=== PATIENT | female | born 1960 | race Two or more races ===

== ENCOUNTER 2018-10-02 09:29 | Emergency (ER) | payer OTHER ==
[2018-10-02 09:44] VITALS: TEMP 97.9; BMI 28.0
--- NOTE | 2018-10-02 10:11 | PDOC ---
History of Present Illness - General Chief Complaint: Chest Pain Stated Complaint: CHEST PAIN - History of Present Illness Initial Comments: Tanisha Muñiz is a 58yo woman with a PMH of sarcoidosis and mild asthma who presents reporting several weeks of chest tightness with SOB, now with several short/stabbing chest pains that occurred overnight. She feels that her SOB was worse today and presented for evaluation. She states that she sees Dr Crowe, and she recently saw him about 2 weeks ago for the shortness of breath. He told her everything was fine at that time, and he prescribed a course of antiobiotics and steroids. She took the entire prescribed course, but her symptoms did not really improve as much as she thought they should. She was trying to deal with the SOB, but yesterday had several episodes of short, stabbing chest pain that concerned her. She started taking a second course of steroids (prescribed 'just in case" by Dr Crowe) yesterday. Today, she felt short of breath just driving to work and decided to stop at the ED. She states that her SOB is worst when leaning forward to tie her shoes, although she has also noticed it with exertion such as climbing stairs. She has not had any cough, fever/chills, sick contacts, leg swelling, or other recent symptoms. She has otherwise been feeling well. She states that this feels similar to when she was diagnosed with pleurisy a year ago, but she expected that would have improved with the steroids. Past History - Past Medical History Allergies/Adverse Reactions: Allergies Allergy/AdvReac Type Severity Reaction Status Date / Time No Known Allergies Allergy Verified 10/02/18 09:44 Home Medications: Ambulatory Orders Albuterol Sulfate Inhaler - [Ventolin HFA Inhaler -] 1 - 2 inh PO Q4H #1 inh Albuterol 0.083% Nebulizer Mary [Ventolin 0.083%] 1 neb NEB QID PRN 10/02/18 Erythromycin [Mark-Tab -] 500 mg NR DAILY 10/02/18 predniSONE [Deltasone -] 30 mg PO DAILY 10/02/18 Asthma: Yes COPD: No (sarcodosis) - Suicide/Smoking/Psychosocial Hx Smoking History: Former smoker Have you smoked in the past 12 months: No If you are a former smoker, when did you quit?: 20 Information on smoking cessation initiated: No Review of Systems - Review of Systems Comments:: General: No fevers, no chills, no weight or appetite change, no malaise HEENT: No changes in vision, no changes in hearing, no congestion, no sore throat CV: +Chest pain, no palpitations, no LE edema Pulm: See HPI GI: No nausea or vomiting, no change in bowel habits, no melena : No frequency, no urgency, no dysuria Musc: No back pain, no joint swelling, no recent injury Skin: No rash, no lesions, no erythema Endo: No excessive thirst, no heat/cold intolerance Heme: No unusual bruising or bleeding, no swollen glands Neuro: No syncope, no numbness/tingling, no focal weakness Vasc: No claudication Psych: No recent change in mood, no SI or HI *Physical Exam - Vital Signs Last Vital Signs Temp Pulse Resp BP Pulse Ox 97.9 F 77 20 154/87 100 10/02/18 09:41 10/02/18 09:41 10/02/18 09:41 10/02/18 09:41 10/02/18 09:41 - Physical Exam Comments: General: Comfortable, no acute distress HEENT: PERRL, EOMI, MMM, voice normal, normal neck ROM, no LAD Cards: RRR, no murmur appreciated Pulm: Comfortable on room air, clear to auscultation bilaterally Abd: Soft, nontender, nondistended Ext: Atraumatic. No LE edema. ROM intact. Strength 5/5 and equal bilaterally. No calf tenderness. Vasc: Extremities WWP. Skin: Normal color, no rashes or lesions Neuro: A&Ox3, CN grossly intact, normal speech, motor/sensory grossly intact and symmetric Psych: Mood appropriate to situation Moderate Sedation - Procedure Monitoring Vital Signs: Procedure Monitoring Vital Signs Temperature 97.9 F 10/02/18 09:41 Pulse Rate 77 10/02/18 09:41 Respiratory Rate 20 10/02/18 09:41 Blood Pressure 154/87 10/02/18 09:41 O2 Sat by Pulse Oximetry (%) 100 10/02/18 09:41 ED Treatment Course - LABORATORY CBC & Chemistry Diagram: 10/02/18 09:45 10/02/18 09:45 Medical Decision Making - Medical Decision Making 10/02/18 10:09 Tanisha Muñiz is a 58yo woman with a PMH of sarcoidosis and mild asthma who presents reporting several weeks of chest tightness with SOB, now with several short/stabbing chest pains that occurred overnight. She feels that her SOB was worse today and presented for evaluation. - States that this feels like pleurisy she was previously diagnosed with, but she has had no improvement with a course of steroids from her PMD - Most likely flare of sarcoid, but will r/o ACS. Could also be exacerbation of asthma, though this is less likely as she has no wheezing on exam - CBC, chemistry, CXR, EKG, trop 10/02/18 12:25 - Labs reviewed. No concerning abnormalities. D-dimer negative - CXR completed. No comparison, but no apparent acute abnormalities. Radiology read pending - Will call Dr Crowe to update him regarding the workup 10/02/18 13:17 - Patient seen by Dr Chacon. She reports that she was supposed to have a stress test but has not yet done so. Advised to schedule this soon - Will call Dr Crowe again as he has not yet called back - Plan to d/c home with close follow up unless advised otherwise by Dr Crowe Discussed with Dr Chacon. Stacey Velasquez PGY1 *DC/Admit/Observation/Transfer Diagnosis at time of Disposition: Shortness of breath - Discharge Dispostion Disposition: HOME Condition at time of disposition: Stable Decision to Admit order: No - Referrals Referrals: Daron Crowe MD [Primary Care Provider] - - Patient Instructions Printed Discharge Instructions: DI for Shortness of Breath Additional Instructions: Discharge Instructions: You were seen in the emergency department for worsening shortness of breath. You had blood tests to check for infection or other abnormalities, a heart blood test (troponin) and EKG to check for heart disease, and a chest xray. Your tests were all normal, and no clear cause of your shortness of breath was found. Make an appointment to follow up with your regular doctor within the next few days. You may need additional testing. Continue to take all of your home medications as prescribed. Seek immediate medical care if your symptoms worsen, you have persistent chest pain or severe difficulty breathing, you develop fevers, or you have any medical emergency. - Post Discharge Activity Forms/Work/School Notes: Back to Work
--- NOTE | 2018-10-02 10:35 | PDOC ---
Attending Attestation - Resident Resident Name: Stacey Velasquez - ED Attending Attestation I have performed the following: I have examined & evaluated the patient, The case was reviewed & discussed with the resident, I agree w/resident's findings & plan, Exceptions are as noted - Physicial Exam PE: 10/02/18 13:04 Reviewed Residents PE - Medical Decision Making 10/02/18 13:16 58 years old past medical history for sarcoidosis and asthma presents to the ED with mild dyspnea for the last 3 days worse when she bends over also yesterday had a brief episode of chest pressure Chest pressure was very mild in exertional fleeting nonradiating. Dyspnea is mostly when bending over She endorses no weight gain currently chest pain-free Chest x-ray demonstrated no acute pathology troponin negative EKG nonischemic d- dimer negative. Discussed admission for further workup with patient patient is low risk for ACS at this time heart score 2 She will start her home prednisone for presumed sarcoid flare she will also follow-up with her doctor tomorrow for additional cardiology workup and evaluation she is scheduled for a outpatient stress test She will return to the ED for any worsening symptoms or for any concerns. <Vj Chacon - Last Filed: 10/02/18 13:16> - HPI HPI: 10/02/18 12:13 The patient is a 58-year-old female with a past medical history significant for sarcoidosis and asthma presents to the emergency department with chest tightness and shortness of breath. The patient presents with chest tightness and shortness of breath thats been ongoing for the past couple of weeks. The patient reports following with PCP, who prescribed the patient abx and steroids , reports relief, however, denies returning to baseline. The patient states she started the 2nd course of steroids yesterday, without relief. The patient states she had 2 episodes of chest pain thats sharp in quality, 1st episode to the upper chest and another to mid-chest. The patient report associated symptoms of R. calf cramping. The patient reports for the past 3 days shes been having dyspnea on exertion, states she experience shortness of breath while bending over to pick something up. The patient states she was concerned and decided to follow up. Denies any chest pain currently. No recent travel or immobilization. Denies hx of CA. Denies weight gain Allergies: NKDA PCP: Dr. Crowe. - Medical Decision Making 10/02/18 12:01 Plan: EKG: Lab: Trop and D-dimer. Radiology: Chest X-ray 10/02/18 12:13 Documentation prepared by Maria E Haddad, acting as medical transcriptionist for Vj Chacon MD. <Maria E Haddad - Last Filed: 10/02/18 13:20> Heart Score/ECG Review - History History: Slightly suspicious - Electrocardiogram EKG: Normal - Age Age: 45-65 - Risk Factors Based on the list above the patient has:: 1-2 risk factors - Troponin Troponin: </= normal limit - Score Heart Score - Total: 2 - ECG Impressions Comment:: 10/02/18 13:04 EKG performed at 9:25 AM demonstrates normal sinus rhythm no ST elevation or T- wave inversions. Interpreted by me <Vj Chacon - Last Filed: 10/02/18 13:16>
[2018-10-02 10:58] LABS: BASO % 0.6 % (0-2.0); EOS % 0.4 % (0-4.5); HEMATOCRIT 42.4 % (32.4-45.2); LYMPH % 17.9 % (8-40); MCH 32.1 pg (25.7-33.7); MCHC 35.4 g/dl (32.0-36.0); MEAN CELL VOLUME 90.6 fl (80-96); MEAN PLT VOLUME 9.6 fl (7.5-11.1); MONO % 5.3 % (3.8-10.2); NEUT % 75.8 % (42.8-82.8); PLATELET COUNT 189 K/MM3 (134-434); RBC 4.69 M/mm3 (3.60-5.2); RDW 13.2 % (11.6-15.6); WHITE BLOOD COUNT 9.4 K/mm3 (4.0-10.0)
[2018-10-02 11:42] LABS: ALBUMIN 3.6 g/dl (3.4-5.0); ALK PHOS 86 U/L (45-117); ANION GAP 4 MMOL/L (8-16); BILIRUBIN,TOTAL 0.6 mg/dL (0.2-1); BLOOD UREA NITROGEN 12 mg/dL (7-18); CALCIUM 9.1 mg/dL (8.5-10.1); CHLORIDE 108 mmol/L (98-107); CO2 27 mmol/L (21-32); CREATININE 0.7 mg/dL (0.55-1.3); GLUCOSE,RANDOM 118 mg/dL (74-106); MAGNESIUM 2.5 mg/dL (1.8-2.4); PHOSPHOROUS 2.9 mg/dL (2.5-4.9); POTASSIUM 4.2 mmol/L (3.5-5.1); SGOT/AST 63 U/L (15-37); SGPT/ALT 104 U/L (13-61); SODIUM 140 mmol/L (136-145); TOT PROT 7.3 g/dl (6.4-8.2)
[2018-10-02 14:29] VITALS: BP 138/84; PULSE 82
--- NOTE | 2018-10-02 17:16 | EKG ---
Test Reason : Blood Pressure : / mmHG Vent. Rate : 070 BPM Atrial Rate : 070 BPM P-R Int : 148 ms QRS Dur : 086 ms QT Int : 412 ms P-R-T Axes : 035 040 064 degrees QTc Int : 444 ms NORMAL SINUS RHYTHM POSSIBLE LEFT ATRIAL ENLARGEMENT ABNORMAL ECG NO PREVIOUS ECGS AVAILABLE Confirmed by MD LILIBETH, TONI ([id number]) on 10/02/2018 5:15:50 PM Referred By: Confirmed By:TONI MCELROY MD
== END 2018-10-02 14:15 | disposition home or self-care (01) ==
LOC: JER 09:29
DX: R06.09 Other forms of dyspnea (principal); J45.909 Unspecified asthma, uncomplicated; D86.89 Sarcoidosis of other sites
CPT/HCPCS: 36415; 71046-TC-FY; 80053; 82550; 83735; 84100; 84484; 85025; 85379; 93005; 93010; 99283-25